=== PATIENT | male | born 1980 | race Caucasian/White ===

== ENCOUNTER 2016-04-26 05:29 | Day surgery (SDC) | payer OTHER, MEDICAID ==
[~2016-04-26] VITALS: Ht 175.3 cm; Wt 169.0 kg
--- NOTE | 2016-05-04 07:13 | OR ---
ADMIT: 04/26/2016 RM/LOC: [facility] MR#: [id number] [place], [place] [id number] ARIANA GARNETT [address] [place] [address] Operative/Delivery Room Report SEX: M AGE: 35 : 1980 SURGERY DATE: 04/26/2016 SURGEON: Doyle Owen MD PREOPERATIVE DIAGNOSIS: Umbilical hernia. POSTOPERATIVE DIAGNOSIS: Umbilical hernia. PROCEDURE: Umbilical hernia repair with 8 cm Ventralex mesh. RANGE MANAGEMENT SPECIALIST: BAYRON Ma whose assistance was necessary because of the severe morbid obesity and for tissue retraction and visualization. ANESTHESIA: General endotracheal. ESTIMATED BLOOD LOSS: 25 mL. DESCRIPTION OF PROCEDURE: The patient was taken to the operating room and placed supine on the operating room table. General anesthesia was established. The abdomen was prepped and draped in the standard surgical fashion. A curvilinear infraumbilical incision was made in the skin. Dissection proceeded through the subcutaneous tissue to the hernia sac. The hernia sac was carefully dissected away from the overlying skin and back to the fascial margins. The sac was then excised from the fascial margin circumferentially and sent as specimen. There was a large piece of omentum also protruding through the defect. A small piece of this was excised with cautery and sent with the sac as specimen. The remainder of the omentum was reduced. The fascial margins were cleaned of overlying fatty tissue. Next, an 8 cm Ventralex mesh was placed intraabdominally with good overlap of the defect. This was secured circumferentially in a transfascial manner with 0 silk suture. This provided good overlap with no tension on the repair. The umbilical skin was tacked to the repair site with 2-0 Vicryl suture. The deep tissue in the subcutaneous space was closed with 2-0 Vicryl suture. Skin edges were approximated with 4-0 Monocryl in a subcuticular fashion and Dermabond. Local anesthetic was injected and a dressing was applied. Sponge, needle, and instrument counts were correct at the end of the case. The patient tolerated the procedure well and transferred to the recovery area in stable condition. Doyle Owen MD/ emelia JOB #: [id number] CC: Doyle Owen, Attending Physician Aaron Rae, Family Physician
== END 2016-04-26 11:30 | disposition home or self-care (01) ==
LOC: SSS 05:29 → EDSTATUS 09:11 → SSS 09:15
PROC: 0WUF0JZ Supplement Abdominal Wall with Synthetic Substitute, Open Approach (ICD-10-PCS; principal; 2016-04-26)
DX: K42.9 Umbilical hernia without obstruction or gangrene (principal); E66.01 Morbid (severe) obesity due to excess calories; F17.210 Nicotine dependence, cigarettes, uncomplicated; Z68.43 Body mass index [BMI] 50.0-59.9, adult; Z88.0 Allergy status to penicillin; Z79.899 Other long term (current) drug therapy; G47.30 Sleep apnea, unspecified; Z99.81 Dependence on supplemental oxygen